=== PATIENT | male | born 1995 | race Caucasian/White ===

== ENCOUNTER 2021-04-12 00:09 | Emergency (ER) | payer OTHER ==
[~2021-04-12] VITALS: Ht 193 cm; Wt 88.5 kg
--- NOTE | 2021-04-12 00:15 | NUR ---
PATIENT CAME IN FOR C/O DOG BITE ON LEFT HAND AROUND 10 PM. PATIENT IS A/O X 4, RR EVEN AND UNLABORED, NO SIGNS OF SOB NOTED. PATIENT CONNECTED TO RIVER RAT AND POX.
[2021-04-12] MEDS ORDERED: AMOX-430 PO (00:30)
[2021-04-12] MEDS ORDERED: AMOX/CLAVULANATE 875 MG TABLET PO ONE (00:30)
--- NOTE | 2021-04-12 00:30 | NUR ---
emt at bedside for wound care
[2021-04-12] MEDS ORDERED: AMOX/CLAVULANATE 875 MG TABLET ONE (00:35)
--- NOTE | 2021-04-12 00:37 | NUR ---
Patient discharged to home in stable condition. Written and verbal after care instructions given. Patient verbalizes understanding of instruction.Ptambulatory with a steady gait
[2021-04-12 00:52] VITALS: BP 128/71
== END 2021-04-12 00:52 | disposition home or self-care (01) ==
LOC: ER 00:12
DX: S61.217A Laceration without foreign body of left little finger without damage to nail, initial encounter (principal); S61.432A Puncture wound without foreign body of left hand, initial encounter; W54.0XXA Bitten by dog, initial encounter; Y93.89 Activity, other specified; Y92.89 Other specified places as the place of occurrence of the external cause; Y99.8 Other external cause status